=== PATIENT | female | born 1990 | race Caucasian/White ===

== ENCOUNTER → 2018-01-06 | Outpatient (CLI) | payer MEDICAID ==
[~2018-01-06] MED LIST: AMOX500T10 PO; ASCO-182 PO; ASCO500C9 PO; CEF300 PO; CEPH500T7 PO; CHOL100052 PO; CHOL100059 PO; CIPDEXPT LEFT EAR; FLU150 PO; GARL500T PO; IBUP600T22 PO; IBUP800T37 PO; LACT1CAP9 PO; LEVO750T44 PO; LOR5/325 PO; MAGN250T34 PO; METR-119 PO; NAPR220C12 PO; OFLO5DRO45 OT; OXYC5TAB38 PO; SULF-198 PO; Work Note
--- NOTE | 2018-01-06 16:09 | RADIOLOGY IMAGING REPORT ---
FACILITY: PATIENT NAME: Sonja Gann : 1990 MR: [id number] V: [id number] EXAM DATE: ORDERING PHYSICIAN: MALISSA BHANDARI TECHNOLOGIST: Location: [facility] Patient: Sonja Gann : 1990 Visit/Account:[id number] Date of Sevice: 01/06/2018 Pelvic ultrasound Comparison: 02/13/2017. History: Pelvic pain. Findings: Standard transabdominal and transvaginal pelvic ultrasound with color flow and spectral rj lysis. Uterus: Uterus measurement: 8.9 x 4.8 x 6.0 cm Endometrium measurement: 5 mm The endometrium and myometrium are homogeneous with no suspicious mass or vascular abnormality identi fied. Adnexa: Right ovary: 2.6 x 2.1 x 1.3 cm Left ovary: 2.2 x 1.6 x 1.4 cm No suspicious ovarian or adnexal mass. Normal arterial and venous flow is documented within each ova ry on Doppler evaluation. Free fluid: None Urinary bladder: Negative. IMPRESSION: Normal pelvic ultrasound. Report Dictated By: Carlos Plasencia MD at 01/06/2018 4:02 PM Report E-Signed By: Carlos Plasencia MD at 01/06/2018 4:04 PM WSN:[id number]
== END ==
LOC: US 14:28
PROVIDERS: ATTEND Nurse Practitioner
DX: R10.2 Pelvic and perineal pain (principal); R10.32 Left lower quadrant pain
CPT/HCPCS: 76856

== ENCOUNTER 2018-06-04 12:33 | Emergency (ER) | payer MEDICAID ==
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
[2018-06-04] MEDS ORDERED: IOPAMIDOL 76% 75 ML INFUS BTL 75 ML ONE (13:19)
[2018-06-04] MEDS ORDERED: NS(*) 0.9% 50 ML BAG 50 ML ONE (13:19)
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
[2018-06-04 15:03] VITALS: BP 113/67
== END 2018-06-04 15:11 | disposition home or self-care (01) ==
LOC: ER 12:36
DX: T71.9XXA Asphyxiation due to unspecified cause, initial encounter (principal); Y08.89XA Assault by other specified means, initial encounter
CPT/HCPCS: 70498; 81025; 99284; J7050; Q9967

== ENCOUNTER 2019-04-17 13:26 | Emergency (ER) | payer MEDICAID ==
[2019-04-17] MEDS ORDERED: LACT1CAP6 PO (13:31)
[2019-04-17] MEDS ORDERED: NORG1TAB74 PO (13:31)
--- NOTE | 2019-04-17 13:36 | ER Report ---
History and Physical Time Seen By MD: 13:32 Hx. of Stated Complaint: HEAVY VAGINAL BLEEDING. HPI/ROS CHIEF COMPLAINT: Vaginal bleeding HISTORY OF PRESENT ILLNESS: 28-year-old female patient persists to emergency room with complaint of vaginal bleeding. Patient states that she is not . She states that she is currently taking Sprintec for her control. She states that she states started bleeding this morning when she got up. She states that it has gotten significantly worse. She states this morning she was bleeding around a tampon while showering. Patient denies any fevers, chills, nausea, vomiting or diarrhea. Patient states she has some bloating, which is not abnormal for when she is having bleeding. Patient states she's already had her menses this month and that this bleeding is abnormal. Patient states she's feeling lightheaded and dizzy. She states she is not taking any medication for this. REVIEW OF SYSTEMS: Respiratory: No cough, no dyspnea. Cardiovascular: No chest pain, no palpitations. Gastrointestinal: No vomiting, no abdominal pain. Musculoskeletal: No back pain. Allergies: Coded Allergies: doxycycline (Verified Allergy, Unknown, 04/01/19) metronidazole (Verified Allergy, Unknown, 04/01/19) Uncoded Allergies: levoquin (Adverse Reaction, Unknown, 02/18/17) Home Meds Active Scripts Ketorolac Tromethamine (KETOROLAC TROMETHAMINE) 10 Mg Tab, 10 MG PO Q6H, #20 TAB Prov:MICHAELA RICHARDS TAYA 04/17/19 Reported Medications Lactobacillus Combination No.4 (PROBIOTIC) 1 Each Capsule, 1 EACH PO DAILY, CAPSULE 04/17/19 Norgestimate-Ethinyl Estradiol (SPRINTEC) 1 Each Tablet, 1 EACH PO DAILY 04/17/19 Past Medical/Surgical History Patient has a past medical history of syncope, migraines, angina, irregular heartbeat, hypothyroidism, alcohol use. Patient denies any surgical history. Reviewed Nurses Notes: Yes Hx Smoking: No Smoking Status: Never Smoker, Former Smoker Exposure to Second Hand Smoke?: No Hx Substance Use Disorder: No Hx Alcohol Use: Yes (occ) Constitutional Vital Sign - Last 24 Hours 04/17/19 04/17/19 04/17/19 04/17/19 13:30 13:31 14:30 15:00 Temp 97.7 Pulse 75 87 75 83 Resp 20 B/P (MAP) 120/75 (90) 125/77 104/63 (77) 107/66 (80) Pulse Ox 97 96 96 O2 Delivery Room Air Physical Exam General Appearance: The patient is alert, has no immediate need for airway protection and no current signs of toxicity. Respiratory: Chest is non tender, lungs are clear to auscultation. Cardiac: regular rate and rhythm Gastrointestinal: Abdomen is soft and non tender, no masses, bowel sounds normal. Musculoskeletal: Neck: Neck is supple and non tender. Extremities have full range of motion and are non tender. Skin: No rashes or lesions. DIFFERENTIAL DIAGNOSIS: After history and physical exam differential diagnosis was considered for vaginal bleeding including but not limited to ectopic , menses, miscarriage, and dysfunctional uterine bleeding. Medical Decision Making Data Points Result Diagram: 04/17/19 1340 04/17/19 1340 Laboratory Hematology Test 04/17/19 13:40 White Blood Count 7.3 k/uL (4.5-11.0) Red Blood Count 4.51 M/uL (4.17-5.56) Hemoglobin 14.0 g/dL (12.0-16.0) Hematocrit 41.4 % (34.0-47.0) Mean Corpuscular Volume 91.6 fL (80.0-96.0) Mean Corpuscular Hemoglobin 31.1 pg (26.0-33.0) Mean Corpuscular Hemoglobin Concent 33.9 g/dL (32.0-36.0) Red Cell Distribution Width 13.4 % (11.5-14.5) Platelet Count 305 K/uL (150-450) Mean Platelet Volume 7.0 fL (7.2-11.1) L Neutrophils (%) (Auto) 61.7 % (39.4-72.5) Lymphocytes (%) (Auto) 27.3 % (17.6-49.6) Monocytes (%) (Auto) 7.2 % (4.1-12.4) Eosinophils (%) (Auto) 3.3 % (0.4-6.7) Basophils (%) (Auto) 0.5 % (0.3-1.4) Nucleated RBC Relative Count (auto) 0.0 /100WBC Neutrophils # (Auto) 4.5 K/uL (2.0-7.4) Lymphocytes # (Auto) 2.0 K/uL (1.3-3.6) Monocytes # (Auto) 0.5 K/uL (0.3-1.0) Eosinophils # (Auto) 0.2 K/uL (0.0-0.5) Basophils # (Auto) 0.0 K/uL (0.0-0.1) Nucleated RBC Absolute Count (auto) 0.00 K/uL Chemistry Test 04/17/19 13:40 Sodium Level 137 mmol/L (137-145) Potassium Level 4.2 mmol/L (3.5-5.0) Chloride Level 103 mmol/L (98-107) Carbon Dioxide Level 26 mmol/L (22-31) Blood Urea Nitrogen 10 mg/dl (7-18) Creatinine 1.00 mg/dl (0.52-1.04) Glomerular Filtration Rate Calc > 60.0 Random Glucose 91 mg/dl (75-110) Calcium Level 9.3 mg/dl (8.4-10.2) Total Bilirubin 0.5 mg/dl (0.2-1.3) Aspartate Amino Transf (AST/SGOT) 28 U/L (0-35) Alanine Aminotransferase (ALT/SGPT) 29 U/L (0-56) Alkaline Phosphatase 47 U/L (0-126) Total Protein 7.2 g/dl (6.3-8.2) Albumin 4.0 g/dl (3.5-5.0) Human Chorionic Gonadotropin, Qual Negative (NEGATIVE) Coagulation Test 04/17/19 13:40 Prothrombin Time 13.8 seconds (12.0-14.4) Prothromb Time International Ratio 1.06 Activated Partial Thromboplast Time 34 seconds (23-35) EKG/Imaging Imaging TRANSVAGINAL NON-OB INDICATION: , VAGINAL BLEEDING COMPARISON: 01/06/2018 FINDINGS: Uterus measures 7.7 x 4.6 x 6.0 cm and is homogeneous in echotexture. No mass is identified. Double wall endometrial stripe measures 3 mm and is homogeneous There is no free fluid in the cul-de-sac. Urinary bladder is empty. Pelvic vessels appear unremarkable on this examination. Right ovary measures 1.3 x 1.3 x 0.8 cm and shows normal blood flow and contains several small follicles. Left ovary measures 1.7 x 1.4 x 1.0 cm and shows normal blood flow and contains several small follicles. IMPRESSION: 1. Pelvic ultrasound is within normal limits. Report Dictated By: Romero Kelly at 04/17/2019 3:13 PM Report E-Signed By: Romero Kelly at 04/17/2019 3:15 PM ED Course/Re-evaluation ED Course Patient was admitted to an exam room, history and physical were obtained. Diff erential diagnoses were considered. On examination lungs are clear, heart is regular, abdomen soft and nontender. He pelvic exam was done as described below. A CBC, CMP, hCG were done. Lab results were unremarkable. Patient was not anemic at this time. Patient received a liter normal saline. On evaluation doing pelvic exam there is not a significant amount of bleeding. A pelvic ultrasound was done which was negative. Patient did receive 30 mg of Toradol IV here in the emergency room. Patient states she does feel better. We will go ahead and discharge her home at this time. 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 She is to take the Toradol as needed to help with bleeding. Patient verbalized understanding and agreement with plan. Pelvic exam: The vulva was normal no lesions. The vagina did not have significant discharge. The cervix was closed slight bleeding and no purulent drainage. The uterus was normal size and non tender. The adnexa had no masses and no tenderness. The exam was performed with a plow mechanic. Decision to Disposition Date: Apr 17, 2019 Decision to Disposition Time: 15:25 Depart Departure Latest Vital Signs Vital Signs Date Time Temp Pulse Resp B/P (MAP) Pulse Ox O2 Delivery O2 Flow Rate FiO2 04/17/19 15:00 83 107/66 (80) 96 04/17/19 13:31 97.7 20 Room Air Impression: Primary Impression: Dysfunctional uterine bleeding Condition: Improved Disposition: HOME OR SELF-CARE Referrals: WANDA COVINGTON MD (PCP) New Scripts Ketorolac Tromethamine (KETOROLAC TROMETHAMINE) 10 Mg Tab 10 MG PO Q6H, #20 TAB Prov: MICHAELA RICHARDS 04/17/19 Patient Instructions: Dysfunctional Uterine Bleeding (ED) Additional Instructions: Increase fluid intake. Get plenty of rest. Follow up with your primary care provider in the next week. Return to the ER if condition worsen. Take the medication as prescribed. MICHAELA RICHARDS Apr 17, 2019 13:36
[2019-04-17] MEDS ORDERED: NS(*) 0.9% 1000 ML BAG 1,000 ML IV ONE (13:41)
[2019-04-17] MEDS ORDERED: KETOROLAC 30 MG/ML VIAL IVP ONE (13:45)
[2019-04-17 13:58] LABS: PLATELET COUNT, AUTOMATED 305 K/uL (150-450)
[2019-04-17 14:08] LABS: INR 1.06
[2019-04-17 15:00] VITALS: BP 107/66
--- NOTE | 2019-04-17 15:22 | RADIOLOGY IMAGING REPORT ---
FACILITY: [facility] PATIENT NAME: Sonja Gann : 1990 MR: [id number] V: [id number] EXAM DATE: ORDERING PHYSICIAN: MICHAELA RICHARDS TECHNOLOGIST: Location: [facility] Patient: Sonja Gann : 1990 Visit/Account:[id number] Date of Sevice: 04/17/2019 TRANSVAGINAL NON-OB INDICATION: , VAGINAL BLEEDING COMPARISON: 01/06/2018 FINDINGS: Uterus measures 7.7 x 4.6 x 6.0 cm and is homogeneous in echotexture. No mass is identified. Double wall endometrial stripe measures 3 mm and is homogeneous There is no free fluid in the cul-de-sac. Urinary bladder is empty. Pelvic vessels appear unremarkable on this examination. Right ovary measures 1.3 x 1.3 x 0.8 cm and shows normal blood flow and contains several small follic les. Left ovary measures 1.7 x 1.4 x 1.0 cm and shows normal blood flow and contains several small follicl es. IMPRESSION: 1. Pelvic ultrasound is within normal limits. Report Dictated By: Romero Kelly at 04/17/2019 3:13 PM Report E-Signed By: Romero Kelly at 04/17/2019 3:15 PM WSN:[id number]
[2019-04-17] MEDS ORDERED: KET10 PO (15:30)
[2019-04-20] MEDS ORDERED: MEDR10TA57 PO (11:17)
== END 2019-04-17 15:49 | disposition home or self-care (01) ==
LOC: ER 13:40
DX: N93.8 Other specified abnormal uterine and vaginal bleeding (principal)
CPT/HCPCS: 76830; 84703; 85025; 85610; 85730; 86850; 86900; 86901; 96361; 96374; 99284; J1885; J7030; 82040; 82247; 82310; 82374; 82435; 82565; 82947; 84075; 84132; 84155; 84295; 84450; 84460; 84520

== ENCOUNTER → 2019-04-20 | Outpatient (CLI) | payer MEDICAID ==
[~2019-04-20] MED LIST changes: +KET10 PO; +LACT1CAP6 PO; +MEDR10TA57 PO; +NORG1TAB74 PO
== END ==
LOC: LAB 11:22
PROVIDERS: ATTEND Obstetrics & Gynecology
DX: N93.8 Other specified abnormal uterine and vaginal bleeding (principal); Z72.51 High risk heterosexual behavior
CPT/HCPCS: 36415; 86592; 86703; 86803; 87340

== ENCOUNTER → 2019-05-01 | Outpatient (CLI) | payer MEDICAID ==
[~2019-05-01] MED LIST changes: +CHOL10005 PO; +ELDE1CAP PO; +GARL1TAB9 PO; +LACT1CAP23; +NITR-1 PO; +ZINC30TA5 PO; +[UNRECOGNIZED DRUG - CODE] PO
[2019-05-01 17:51] LABS: PLATELET COUNT, AUTOMATED 302 K/uL (150-450)
== END ==
PROVIDERS: ATTEND Nurse Practitioner Family
DX: R07.0 Pain in throat (principal); M54.5 Low back pain
CPT/HCPCS: 82040; 82247; 82310; 82374; 82435; 82565; 82947; 84075; 84132; 84155; 84295; 84450; 84460; 84520; 85025

== ENCOUNTER 2019-05-03 17:46 | Inpatient (IN) | payer MEDICAID ==
[~2019-05-03] VITALS: Ht 162.6 cm; Wt 62.6 kg
[~2019-05-03 17:46] MED LIST changes: -CHOL10005 PO; -ELDE1CAP PO; -GARL1TAB9 PO; -LACT1CAP23; -NITR-1 PO; -ZINC30TA5 PO; -[UNRECOGNIZED DRUG - CODE] PO
--- NOTE | 2019-05-03 18:06 | ER Report ---
History and Physical Time Seen By MD: 18:02 Hx. of Stated Complaint: DIAGNOSED WITH UTI AND TONSILITIS AND BEING TREATED WITH MACROBID. REPORTS FEVER FOR 1 WEEK. HPI/ROS CHIEF COMPLAINT: fever and tachycardia HISTORY OF PRESENT ILLNESS: This is a 28 year old female. She has been seen recently for urinary tract infection, currently on Macrobid. Also seen for sore throat, rapid strep at urgent care was negative, but they were considering treatment anyway, but decided to wait. She has history of frequent strep infecti ons every few months. She is being seen by Dr. Johnson, ENT in [place], and is scheduled to see them and they are considering taking out her tonsils. She is having worsening sore throat, pain with swallowing. No chest pain, but having some shortness of breath and heart racing today. Having fevers and chills as well. Having some nausea, no vomiting, no abdominal pain. Still with some urinary urgency and dysuria. Normal bowels. Not eating or drinking as well. Allergies: Coded Allergies: doxycycline (Verified Allergy, Mild, NAUSEA/VOMITING, 05/03/19) blisters to hands codeine (Verified Allergy, Unknown, 05/03/19) metronidazole (Verified Allergy, Unknown, 04/01/19) Uncoded Allergies: levoquin (Adverse Reaction, Unknown, 02/18/17) Home Meds Reported Medications Nitrofurantoin Macrocrystal (NITROFURANTOIN) 100 Mg Capsule, 100 MG PO BID for 5 Days, CAPSULE 05/03/19 Garlic (GARLIC) 1 Each Tablet, 1 EACH PO DAILY 05/03/19 Lactobac #2-S. Therm-Bifido #1 (Visbiome 112.5 Billion Capsule) 112.5 Billion Cell Capsule, DAILY 05/03/19 Elderberry Fruit and Flower (Black Elderberry 575 mg Cap) 460 Mg-115 Mg Capsule, PO DAILY 05/03/19 Zinc Gluconate (ZINC) 30 Mg Tablet, 20 MG PO DAILY 05/03/19 Cholecalciferol (Vitamin D3) (VITAMIN D3) 1,000 Unit Tablet, 5000 UNIT PO DAILY, TAB 05/03/19 Ascorbic Acid (VITAMIN C) 500 Mg Tablet, 1000 MG PO DAILY, TAB 05/03/19 Oregano Oil (OIL OF OREGANO) Unknown Strength Capsule, PO DAILY, CAPSULE 05/03/19 Lactobacillus Combination No.4 (PROBIOTIC) 1 Each Capsule, 1 EACH PO DAILY, CAPSULE 04/17/19 Discontinued Reported Medications Norgestimate-Ethinyl Estradiol (SPRINTEC) 1 Each Tablet, 1 EACH PO DAILY 04/17/19 Discontinued Scripts Medroxyprogesterone Acetate (PROVERA) 10 Mg Tablet, 10 MG PO DAILY, #10 TAB Prov:PAT SINGH Nya DO 04/20/19 Ketorolac Tromethamine (KETOROLAC TROMETHAMINE) 10 Mg Tab, 10 MG PO Q6H, #20 TAB Prov:MICHAELA RICHARDS POT FIRER 04/17/19 Past Medical/Surgical History History of mastoiditis, left ear surgery, question of hypothyroidism. History of syncope in the past. Frequent strep throat infections, seeing ENT. Reviewed Nurses Notes: Yes Hx Smoking: No Smoking Status: Never Smoker Exposure to Second Hand Smoke?: No Hx Substance Use Disorder: No Hx Alcohol Use: Yes (occ) Constitutional Vital Sign - Last 24 Hours 05/03/19 05/03/19 05/03/19 05/03/19 17:46 17:54 17:55 17:59 Temp 100.3 Pulse ??? 133 Resp 20 B/P (MAP) 144/118 (127) 131/62 (85) 131/62 Pulse Ox 95 O2 Delivery Room Air 05/03/19 05/03/19 05/03/19 05/03/19 18:00 18:16 18:30 18:46 Pulse 122 115 B/P (MAP) 130/85 (100) 124/84 (97) Pulse Ox 97 91 05/03/19 05/03/19 05/03/19 05/03/19 18:51 19:00 19:21 19:51 Pulse 112 ??? 114 B/P (MAP) 119/78 (92) Pulse Ox 91 94 05/03/19 05/03/19 05/03/19 05/03/19 20:00 20:21 20:30 20:35 Pulse 107 108 B/P (MAP) 115/70 (85) 121/73 (89) Pulse Ox 94 98 05/03/19 05/03/19 21:00 21:05 Pulse 104 B/P (MAP) 121/80 (94) Pulse Ox 94 Physical Exam General Appearance: The patient is alert. Having some distress due to pain. Non-toxic in appearance. Eyes: Pupils are equal, round. Reactive to light. No pallor, injection or icterus. Extraocular movements are intact. ENT: Mucous membranes are moist. Normal oral mucosa. Posterior oropharynx has tonsillar hypertrophy, exudates, and erythema, with some increased size on left compared to right, but good room in posterior oropharynx and no kissing tonsils. Void is not muffles or hoarse, and no stridor. Normal nasal mucosa. Normal tympanic membranes and canals. Neck: Supple and non tender. Has some submandibular lymphadenopathy. Respiratory: Lungs are clear to auscultation. Cardiovascular: Regular rate and rhythm. No murmurs, gallops or rubs. Normal capillary refill. Gastrointestinal: Abdomen is soft and non tender. Nondistended. Normal active bowel sounds. Has some bilateral CVA tenderness. Neurological: Alert and oriented x3. No focal neurologic deficits Skin: Warm and dry. No rashes. Musculoskeletal: Extremities are nontender. No tenderness in palpation of the cervical, thoracic and lumbar spine. DIFFERENTIAL DIAGNOSIS: After history and physical exam, differential diagnosis was considered for patient with fever and chills with worsening symptoms of sore throat and recent treatment for urinary tract infection with some bilateral flank pain. Would be concerned about worsening infection and sepsis due to either possible source of infection. With the asymmetry of the tonsils on the left side, would worry about an abscess we'll get a CT scan looking this. Also would worry about worsening urinary tract infection and pyelonephritis. Current antibiotic coverage would be insufficient to cover for an infection in the throat, and we may be dealing with a resistant bacteria in the urinary tract. Medical Decision Making Data Points Result Diagram: 05/03/19 1800 05/03/19 1800 Laboratory Hematology Test 05/03/19 18:00 White Blood Count 12.4 k/uL (4.5-11.0) H Red Blood Count 4.32 M/uL (4.17-5.56) Hemoglobin 13.3 g/dL (12.0-16.0) Hematocrit 39.0 % (34.0-47.0) Mean Corpuscular Volume 90.4 fL (80.0-96.0) Mean Corpuscular Hemoglobin 30.7 pg (26.0-33.0) Mean Corpuscular Hemoglobin Concent 34.0 g/dL (32.0-36.0) Red Cell Distribution Width 13.3 % (11.5-14.5) Platelet Count 284 K/uL (150-450) Mean Platelet Volume 7.0 fL (7.2-11.1) L Neutrophils (%) (Auto) 76.1 % (39.4-72.5) H Lymphocytes (%) (Auto) 11.8 % (17.6-49.6) L Monocytes (%) (Auto) 11.4 % (4.1-12.4) Eosinophils (%) (Auto) 0.5 % (0.4-6.7) Basophils (%) (Auto) 0.2 % (0.3-1.4) L Nucleated RBC Relative Count (auto) 0.1 /100WBC Neutrophils # (Auto) 9.4 K/uL (2.0-7.4) H Lymphocytes # (Auto) 1.5 K/uL (1.3-3.6) Monocytes # (Auto) 1.4 K/uL (0.3-1.0) H Eosinophils # (Auto) 0.1 K/uL (0.0-0.5) Basophils # (Auto) 0.0 K/uL (0.0-0.1) Nucleated RBC Absolute Count (auto) 0.01 K/uL Chemistry Test 05/03/19 18:00 Sodium Level 138 mmol/L (137-145) Potassium Level 3.7 mmol/L (3.5-5.0) Chloride Level 100 mmol/L (98-107) Carbon Dioxide Level 27 mmol/L (22-31) Blood Urea Nitrogen 5 mg/dl (7-18) Creatinine 0.80 mg/dl (0.52-1.04) Glomerular Filtration Rate Calc > 60.0 Random Glucose 114 mg/dl (75-110) Lactate 1.0 mmol/L (0.7-2.1) Calcium Level 9.4 mg/dl (8.4-10.2) Total Bilirubin 0.9 mg/dl (0.2-1.3) Aspartate Amino Transf (AST/SGOT) 27 U/L (0-35) Alanine Aminotransferase (ALT/SGPT) 30 U/L (0-56) Alkaline Phosphatase 74 U/L (0-126) Total Protein 8.0 g/dl (6.3-8.2) Albumin 4.1 g/dl (3.5-5.0) Human Chorionic Gonadotropin, Qual Negative (NEGATIVE) Urinalysis Test 05/03/19 18:07 Urine Color Yellow Urine Clarity Slightly-cloudy Urine pH 7.0 pH (4.8-9.5) Urine Specific [place] 1.014 Urine Protein Negative mg/dL (NEGATIVE) Urine Glucose (UA) Negative mg/dL (NEGATIVE) Urine Ketones Trace mg/dL (NEGATIVE) Urine Blood Negative (NEGATIVE) Urine Nitrite Negative (NEGATIVE) Urine Bilirubin Negative (NEGATIVE) Urine Urobilinogen 2.0 mg/dL (0.2-1.9) Urine Leukocyte Esterase Negative (NEGATIVE) Urine RBC 10 /HPF (0-2/HPF) Urine WBC 2 /HPF (0-5/HPF) Urine Squamous Epithelial Cells Many /LPF (</=FEW) Urine Bacteria Negative /HPF (NONE-FEW) Urine Mucus None /HPF (NONE-FEW) EKG/Imaging Imaging CHEST SINGLE AP Indication: Fever. Sore throat.. Comparison: 04/30/2017. Findings: Cardiomediastinal silhouette and pulmonary vessels within normal limits. There is no focal infiltrate or lobar consolidation. No pneumothorax or pleural effusion. No nodule. Upper abdomen is unremarkable. No acute bony abnormality. IMPRESSION: 1. No acute cardiopulmonary process. Report Dictated By: Giovany Burrows at 05/03/2019 7:[address] SOFT TISSUE NECK W/CONTRAST HISTORY: sore throat/swelling, fever COMPARISON STUDIES: None TECHNIQUE: Axial images were obtained from the skull base through the upper thoracic spine without IV contrast administration. Coronal and sagittal reformatted images were obtained from the axial source data. One of the following dose optimization techniques was utilized in the performance of this exam: Automated exposure control; adjustment of the mA and/or kV according to the patient's size; or use of an iterative reconstruction technique. Specific details can be referenced in the facility's radiology CT exam operational policy. EXAMINATION: CT neck with IV contrast Additional Pertinent history: none TECHNIQUE: Spiral scan was obtained from the hard palate through the upper chest during injection of nonionic iodinated intravenous contrast. Contrast: 75 cc of Isovue-370 COMPARISON STUDIES: none . FINDINGS: Suprahyoid neck: Bilateral palatine tonsillar enlargement with heterogenous striation compatible with uncomplicated bilateral tonsillitis. Parapharyngeal fat is well-maintained bilaterally. No abscess noted. Infrahyoid neck: negative Airway: negative Musculoskeletal / Body wall: negative Lymph node assessment: Symmetric bilateral level 2 lymph nodes noted. No suppurative nodes noted. No suppurative nodes noted. Visualized orbits / brain / paranasal sinuses: There is ethmoid, sphenoid and bilateral maxillary sinusitis. Upper chest: negative IMPRESSION: 1. Uncomplicated bilateral palatine tonsillitis with no evidence of abscess. Bilateral reactive level 2 lymph node seen with no evidence of suppurative nodes. 2. Sinusitis changes. Report Dictated By: Parker Stewart MD at 05/03/2019 7:53 PM ED Course/Re-evaluation Clinical Indication for ER IV: Hydration, IV Access ED Course Initial evaluation suggests sepsis likely due to pyelonephritis versus sore throat and possible abscess. Labs obtained including urine and blood cultures. Lactate also obtained. Patient started with fluids. Improvement in her tachycardia with the IV fluids. CT scan of the neck shows no sign of abscess. Labs do show mild elevated white count, urine test does show some white cells but is not severe in what it looks like for urinary infection. However based on bilateral flank pain, I suspect pyelonephritis. There was some question about allergies to antibiotics, however it sounds like a lot of her list of allergies or nausea or just of the antibiotics classes have not worked. Based on this, there is no adverse reaction to penicillin and we will go ahead and start Zosyn. I have talked to our hospitalist, Dr. Obrien, who accepted the patient for admission. Decision to Disposition Date: May 03, 2019 Decision to Disposition Time: 22:00 Depart Departure Latest Vital Signs Vital Signs Date Time Temp Pulse Resp B/P (MAP) Pulse Ox O2 Delivery O2 Flow Rate FiO2 05/03/19 21:05 104 94 05/03/19 21:00 121/80 (94) 05/03/19 17:59 100.3 20 Room Air Impression: Primary Impression: Sepsis Additional Impressions: Sore throat Pyelonephritis Condition: Improved Disposition: Admitted from ER Referrals: NICOLE FIELD DNP, POT FIRER-BC (PCP) Problem Qualifiers Primary Impression: Sepsis Sepsis type: sepsis due to unspecified organism Sepsis acute organ dysfunction status: without acute organ dysfunction Qualified Codes: A41.9 - Sepsis, unspecified organism RAMY BAHENA MD May 03, 2019 18:06
[2019-05-03] MEDS ORDERED: ACETAMINOPHEN 500 MG TAB PO ONE (18:25)
[2019-05-03] MEDS ORDERED: NS(*) 0.9% 1000 ML BAG 1,000 ML IV ONE (18:25)
[2019-05-03] MEDS ORDERED: ONDANSETRON 4 MG/2 ML VIAL IVP ONE (18:25)
[2019-05-03 18:32] LABS: PLATELET COUNT, AUTOMATED 284 K/uL (150-450)
[2019-05-03] MEDS ORDERED: IOPAMIDOL 76% 100 ML INFUS BTL 100 ML ONE (18:41)
--- NOTE | 2019-05-03 19:16 | RADIOLOGY IMAGING REPORT ---
FACILITY: [facility] PATIENT NAME: Sonja Gann : 1990 MR: [id number] V: [id number] EXAM DATE: ORDERING PHYSICIAN: RAMY BAHENA TECHNOLOGIST: [place] [facility] [place] G[place] : 1990 Visit/Account:[id number] Date of Sevice: 05/03/2019 CHEST SINGLE AP Indication: Fever. Sore throat.. Comparison: 04/30/2017. Findings: Cardiomediastinal silhouette and pulmonary vessels within normal limits. There is no focal infiltrate or lobar consolidation. No pneumothorax or pleural effusion. No nodule. Upper abdomen is unremarkable. No acute bony abnormality. IMPRESSION: 1. No acute cardiopulmonary process. Report Dictated By: Giovany Burrows at 05/03/2019 7:08 PM Report E-Signed By: Giovany Burrows at 05/03/2019 7:09 PM WSN:[id number]
--- NOTE | 2019-05-03 20:18 | RADIOLOGY IMAGING REPORT ---
[place] [facility] [place] NAME: Sonja Gann : 1990 MR: [id number] V: [id number] EXAM DATE: ORDERING PHYSICIAN: RAMY BAHENA TECHNOLOGIST: Location: [facility] Patient: Sonja Gann : 1990 Visit/Account:[id number] Date of Sevice: 05/03/2019 CT SOFT TISSUE NECK W/CONTRAST HISTORY: sore throat/swelling, fever COMPARISON STUDIES: None TECHNIQUE: Axial images were obtained from the skull base through the upper thoracic spine without IV contrast administration. Coronal and sagittal reformatted images were obtained from the axial source data. One of the following dose optimization techniques was utilized in the performance of this exam : Automated exposure control; adjustment of the mA and/or kV according to the patient's size; or use of an iterative reconstruction technique. Specific details can be referenced in the [facility] [place] exam operational policy. EXAMINATION: CT neck with IV contrast Additional Pertinent history: none TECHNIQUE: Spiral scan was obtained from the hard palate through the upper chest during injection o f nonionic iodinated intravenous contrast. Contrast: 75 cc of Isovue-370 COMPARISON STUDIES: none . FINDINGS: Suprahyoid neck: Bilateral palatine tonsillar enlargement with heterogenous striation compatible with uncomplicated bilateral tonsillitis. Parapharyngeal fat is well-maintained bilaterally. No abscess n oted. Infrahyoid neck: negative Airway: negative Musculoskeletal / Body wall: negative Lymph node assessment: Symmetric bilateral level 2 lymph nodes noted. No suppurative nodes noted. No suppurative nodes noted. Visualized orbits / brain / paranasal sinuses: There is ethmoid, sphenoid and bilateral maxillary sin usitis. Upper chest: negative IMPRESSION: 1. Uncomplicated bilateral palatine tonsillitis with no evidence of abscess. Bilateral reactive level 2 lymph node seen with no evidence of suppurative nodes. 2. Sinusitis changes. Report Dictated By: Parker Stewart MD at 05/03/2019 7:53 PM Report E-Signed By: Parker Stewart MD at 05/03/2019 8:10 PM WSN:[id number]
[2019-05-03] MEDS ORDERED: APAP/HYDROCODONE 325/5 TAB PO ONE (20:30)
[2019-05-03] MEDS ORDERED: PIPERACILLIN/TAZO*3.375GM VIAL 3.375 GM in NS(*) 0.9% 100 ML MINI-BAG 100 ML IVPB ONE (21:10)
[2019-05-03 22:08] VITALS: BP 114/66
[2019-05-03] MEDS ORDERED: ASCO-182 PO (22:18)
[2019-05-03] MEDS ORDERED: GARL1TAB9 PO (22:18)
[2019-05-03] MEDS ORDERED: [UNRECOGNIZED DRUG - CODE] PO (22:18)
[2019-05-03] MEDS ORDERED: ELDE1CAP PO (22:18)
[2019-05-03] MEDS ORDERED: LACT1CAP23 (22:18)
[2019-05-03] MEDS ORDERED: CHOL10005 PO (22:18)
[2019-05-03] MEDS ORDERED: ZINC30TA5 PO (22:18)
[2019-05-03] MEDS ORDERED: NITR-1 PO (22:20)
[2019-05-03] MEDS ORDERED: ACETAMINOPHEN 325 MG TAB PO PRN (22:20)
[2019-05-03] MEDS ORDERED: APAP/HYDROCODONE 325/5 TAB PO PRN (22:20)
[2019-05-03] MEDS: NS(*) 0.9% 1000 ML BAG 1,000 ML IV PRN (23:06)
--- NOTE | 2019-05-03 23:09 | History & Physical ---
History of Present Illness Chief Complaint Sore throat, fever, flank pain. History of Present Illness The patient is a 28 year old female who presents with sore throat and fever since Saturday. She was seen in Urgent Care and her strep test was negative but she was found to have a UTI per her report and started on Macrobid. The patient states she was not having any urinary symptoms on Saturday. The patient has a long history of recurrent pharyngitis and ear infections. She has had bilateral myringotomy tubes placed and a L mastoidectomy. Her ear infections have improved but she continues to have recurrent pharyngitis. She is planning to have a tonsillectomy in the near future. The patient has had headache, sore throat, runny nose, cough and fever at home. She has had fever to 103. She has not been around anyone else who has been sick. 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 She admits to drinking on the weekends. She has stopped this as she is being treated for a systemic yeast infection by an integrative physician in [place]. She has been instructed not to drink alcohol. She is also taking multiple vitamins for treatment. History Problems: (1) History of mastoidectomy Status: Resolved (2) History of recurrent ear infection Status: Chronic (3) Recurrent tonsillitis Status: Chronic (4) Hx of headache Status: Chronic (5) Hx of syncope Status: Chronic Home Meds Reported Medications Nitrofurantoin Macrocrystal (NITROFURANTOIN) 100 Mg Capsule, 100 MG PO BID for 5 Days, CAPSULE 05/03/19 Garlic (GARLIC) 1 Each Tablet, 1 EACH PO DAILY 05/03/19 Lactobac #2-S. Therm-Bifido #1 (Visbiome 112.5 Billion Capsule) 112.5 Billion Cell Capsule, DAILY 05/03/19 Elderberry Fruit and Flower (Black Elderberry 575 mg Cap) 460 Mg-115 Mg Capsule, PO DAILY 05/03/19 Zinc Gluconate (ZINC) 30 Mg Tablet, 20 MG PO DAILY 05/03/19 Cholecalciferol (Vitamin D3) (VITAMIN D3) 1,000 Unit Tablet, 5000 UNIT PO DAILY, TAB 05/03/19 Ascorbic Acid (VITAMIN C) 500 Mg Tablet, 1000 MG PO DAILY, TAB 05/03/19 Oregano Oil (OIL OF OREGANO) Unknown Strength Capsule, PO DAILY, CAPSULE 05/03/19 Lactobacillus Combination No.4 (PROBIOTIC) 1 Each Capsule, 1 EACH PO DAILY, CAPSULE 04/17/19 Discontinued Reported Medications Norgestimate-Ethinyl Estradiol (SPRINTEC) 1 Each Tablet, 1 EACH PO DAILY 04/17/19 Discontinued Scripts Medroxyprogesterone Acetate (PROVERA) 10 Mg Tablet, 10 MG PO DAILY, #10 TAB Prov:PAT SINGH DO 04/20/19 Ketorolac Tromethamine (KETOROLAC TROMETHAMINE) 10 Mg Tab, 10 MG PO Q6H, #20 TAB Prov:MICHAELA RICHARDS ORDER BUILDER LOADER 04/17/19 Allergies: Coded Allergies: doxycycline (Verified Allergy, Mild, NAUSEA/VOMITING, 05/03/19) blisters to hands codeine (Verified Allergy, Unknown, 05/03/19) metronidazole (Verified Allergy, Unknown, 04/01/19) Uncoded Allergies: levoquin (Adverse Reaction, Unknown, 02/18/17) Patient History: Diabetes mellitus (DM) GRANDFATHER FH: HTN (hypertension) GRANDFATHER FH: stroke GRANDFATHER FH: thyroid disease SISTER Other Social/Family Hx The patient is single and has a 5 year old daughter. 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 Hx Smoking: No Smoking Status: Never Smoker Exposure to Second Hand Smoke?: No Caffeine Intake: Coffee, Soda Caffeine/Cups Per Day: 1 soda or coffee every other day Hx Alcohol Use: Yes (occ) Social Drug Use: Never Review of Systems Constitutional: Fever, Chills Neurological: Syncope (Hx of syncope. Etiology unknown. Work up with neurology.) ENT: Sore Throat, Ear Ache Respiratory: Cough Gastrointestinal: No Nausea Genitourinary: No Dysuria Musculoskeletal: Pain (Flank.) Exam Vital Signs Vital Signs Date Time Temp Pulse Resp B/P (MAP) Pulse Ox O2 Delivery O2 Flow Rate FiO2 05/03/19 22:26 92 05/03/19 22:22 Room Air 05/03/19 22:08 99.3 103 114/66 (82) 05/03/19 17:59 20 General Appearance: Alert, Awake, No Acute Distress, Other (Feels warm to the touch.) Neuro: No Gross deficits Eyes: PERRLA ENT: Other (Tonsils enlarged, slightly injected, with small amounts of exudate bilaterally.) Neck: Other (Anterior cervical LN enlarged and tender bilaterally.) Cardiovascular: Other (Tachy, regular.) GI: Abd Soft and Non-Tender Extremities: Warm Integumentary: Other (R inner thigh with patch of depigmented skin noted.) Psych: Alert & Oriented X3, Appropriate Mood & Affect Medical Decision Making Data Points Result Diagram: 05/03/19 1800 05/03/19 1800 Pre-Admit Course Medical Record Review: Yes Assessment and Plan Problems: (1) Viral syndrome Status: Acute Assessment & Plan: Likely viral base on symptomatology. She is febrile and tachycardic. Will hydrate and treat her fever with antipyretics. CT neck showed no abscess. Strep test negative at Urgent Care on Saturday. Zosyn was started in ER. (2) Pyelonephritis Status: Acute Assessment & Plan: The patient reportedly had a positive UA on Saturday although states she was asymptomatic. She is not sure if a urine culture was performed. She was started on Macrodantin. Her UA today shows 2 WBCs per HPF but she now has flank pain. She has mild elevation of her white blood count. Will treat with Zosyn IV and recheck labs in am. Urine culture was ordered in ER. Hydrate with IV fluids. Time Spent on Plan of Care: < 30 min Venous Thromboembolism Antithrombotics Is Pt On Any Antithrombotics?: Yes Exam Sepsis Risk: Sepsis Risk MINOR GUILLAUME MD May 03, 2019 23:09
[2019-05-04 02:05] VITALS: BP 112/69
[2019-05-04] MEDS: PIPERACILLIN/TAZO*3.375GM VIAL 3.375 GM in NS(*) 0.9% 100 ML MINI-BAG 100 ML IVPB SCH ×4 (03:40→21:30)
[2019-05-04 05:37] LABS: PLATELET COUNT, AUTOMATED 202 K/uL (150-450)
[2019-05-04] MEDS: NS(*) 0.9% 1000 ML BAG 1,000 ML IV PRN ×3 (06:28→21:57)
[2019-05-04 07:18] VITALS: BP 112/67
--- NOTE | 2019-05-04 09:40 | Hospitalist Progress Note ---
Subjective Progress Notes Subjective No acute events overnight. She has had fevers up to 102.1 overnight. Patient Complains of: Neurological: No: Syncope, Confusion, Weakness Cardiovascular: No: Chest Pain, Palpitations Respiratory: No: Cough, Congestion, Shortness of Breath Gastrointestinal: No Nausea, No Vomiting Physical Exam Vital Signs Date Time Temp Pulse Resp B/P (MAP) Pulse Ox O2 Delivery O2 Flow Rate FiO2 05/04/19 07:42 91 Nasal Cannula 05/04/19 07:38 100.7 05/04/19 07:18 110 20 112/67 (82) Intake and Output 05/04/19 01:03 Intake Total 1300 ml Balance 1300 ml Intake Oral 200 ml IV Total 1100 ml # Voids 2 General Appearance: Alert, Awake, No Acute Distress, Other Cardiovascular: Regular Rate and Rhythm Respiratory: No Respiratory Distress Integumentary: Skin Intact without Lesion / Mass Psych: Alert & Oriented X3, Appropriate Mood & Affect Result Diagram: 05/04/1951905/04/19519 Assessment and Plan Problems: (1) Viral syndrome Status: Acute Assessment & Plan: Likely viral base on symptomatology. She is febrile and tachycardic. Fever got up to 102.1 last night. Will continue with hydration and antipyretics. CT neck showed no abscess. Strep test negative at Urgent Care on Saturday. Zosyn was started in ER. (2) Pyelonephritis Status: Acute Assessment & Plan: The patient reportedly had a positive UA on Saturday although states she was asymptomatic. She is not sure if a urine culture was performed. She was started on Macrodantin. Her UA today shows 2 WBCs per HPF but she now has flank pain. She has mild elevation of her white blood count, which has impro shahida on 05/04. Will treat with Zosyn IV and follow labs. Urine culture was ordered in ER. Hydrate with IV fluids. Exam Sepsis Risk: Sepsis Risk YOCASTA RUSS May 04, 2019 09:40
[2019-05-04] MEDS: ENOXAPARIN 40 MG/0.4ML SYR SC SCH (09:41)
[2019-05-04 10:09] VITALS: Ht 162.6 cm; Wt 62.6 kg
[2019-05-04 11:24] VITALS: BP 111/60
[2019-05-04] MEDS: ACETAMINOPHEN 500 MG TAB PO PRN ×2 (12:41→19:46)
[2019-05-04 14:41] VITALS: BP 121/74
[2019-05-04 19:44] VITALS: BP 116/69
--- NOTE | 2019-05-04 20:24 | Antimicrobial Stewardship ---
Antimicrobial Stewardship Empiricly appropriate: Yes Comment On Zosyn for pyelonephritis. Approriate Cultures done: Yes (NGTD) Renal/Hepatic dosing: Yes Reviewed for Drug Interaction: Yes Monitored for Toxicities: Yes Clinically stable/improving: Yes Determine cumulative duration: 10-14 days REYNA VALDES May 04, 2019 20:24
[2019-05-05 00:06] VITALS: BP 127/75
[2019-05-05] MEDS: ACETAMINOPHEN 500 MG TAB PO PRN ×2 (02:00→08:19)
[2019-05-05 03:17] VITALS: BP 115/74
[2019-05-05] MEDS: PIPERACILLIN/TAZO*3.375GM VIAL 3.375 GM in NS(*) 0.9% 100 ML MINI-BAG 100 ML IVPB SCH ×2 (03:21→09:37)
[2019-05-05] MEDS: NS(*) 0.9% 1000 ML BAG 1,000 ML IV PRN (05:06)
[2019-05-05 05:42] LABS: PLATELET COUNT, AUTOMATED 238 K/uL (150-450)
[2019-05-05 07:37] VITALS: BP 117/75
[2019-05-05] MEDS: ENOXAPARIN 40 MG/0.4ML SYR SC SCH (08:20)
[2019-05-05] MEDS ORDERED: AMOX-559 PO (11:45)
[2019-05-05] MEDS ORDERED: ACET-2146 PO (11:45)
--- NOTE | 2019-05-05 11:53 | Hospitalist Depart ---
Discharge Summary Reason for Hosp/Final Diag: (1) Viral syndrome Status: Acute Hospital Course & Plan: Likely viral base on symptomatology. She was febrile and tachycardic on admission. She has been afebrile for >24hrs at this point. Fevers managed with IV fluids and Tylenol. CT neck showed no abscess. Strep test negative at Urgent Care on Saturday. She has been on Zosyn during this admission and will be switched to Augmentin PO. (2) Pyelonephritis Status: Acute Hospital Course & Plan: The patient reportedly had a positive UA on Saturday although states she was asymptomatic. She is not sure if a urine culture was performed. She was started on Macrodantin. Her UA today shows 2 WBCs per HPF but she now has flank pain. She has mild elevation of her white blood count, which has improved on 05/04. Treated with Zosyn during admission, will switch to Au gmentin. Saline Locked now, but encouraged to push fluids. Departure Weight (Pounds): 138 Result Diagram: 05/05/19 0500 05/05/19 0500 Condition: Improved Discharge: Home, Self Care Discharge Instructions Home Meds Active Scripts Amoxicillin/Pot Clav 875-125 Mg Tab (AUGMENTIN 875-125 TABLET) 1 Each Tablet, 1 TAB PO Q12H, #25 TAB Prov:YOCASTA RUSS 05/05/19 Acetaminophen 500 Mg Tab (ACETAMINOPHEN EXTRA STRENGTH) 500 Mg Tablet, 1000 MG PO Q8H PRN for FEVER/PAIN, #30 TAB Prov:YOCASTA RUSS 05/05/19 Reported Medications Nitrofurantoin Macrocrystal (NITROFURANTOIN) 100 Mg Capsule, 100 MG PO BID for 5 Days, CAPSULE 05/03/19 Garlic (GARLIC) 1 Each Tablet, 1 EACH PO DAILY 05/03/19 Lactobac #2-S. Therm-Bifido #1 (Visbiome 112.5 Billion Capsule) 112.5 Billion Cell Capsule, DAILY 05/03/19 Elderberry Fruit and Flower (Black Elderberry 575 mg Cap) 460 Mg-115 Mg Capsule, PO DAILY 05/03/19 Zinc Gluconate (ZINC) 30 Mg Tablet, 20 MG PO DAILY 05/03/19 Cholecalciferol (Vitamin D3) (VITAMIN D3) 1,000 Unit Tablet, 5000 UNIT PO DAILY, TAB 05/03/19 Ascorbic Acid (VITAMIN C) 500 Mg Tablet, 1000 MG PO DAILY, TAB 05/03/19 Oregano Oil (OIL OF [place]) Unknown Strength Capsule, PO DAILY, CAPSULE 05/03/19 Discontinued Reported Medications Lactobacillus Combination No.4 (PROBIOTIC) 1 Each Capsule, 1 EACH PO DAILY, CAPSULE 04/17/19 Norgestimate-Ethinyl Estradiol (SPRINTEC) 1 Each Tablet, 1 EACH PO DAILY 04/17/19 Discontinued Scripts Medroxyprogesterone Acetate (PROVERA) 10 Mg Tablet, 10 MG PO DAILY, #10 TAB Prov:PAT SINGH DO 04/20/19 Ketorolac Tromethamine (KETOROLAC TROMETHAMINE) 10 Mg Tab, 10 MG PO Q6H, #20 TAB Prov:MICHAELA RICHARDS SENIOR PROGRAM ANALYST 04/17/19 Diet: Regular Activity: As Tolerated Special Instructions: Follow up with your PCP after you are finished with your antibiotics for a follow up urine culture. Do not take any additional Tylenol or medications containing Tylenol, other then what has been prescribed. Do not take any Motrin/Ibuprofen until symtpoms have resolved. Drink plenty of water. May return to work 05/10. Copies to: NICOLE FIELD DNP, SENIOR PROGRAM ANALYST-BC ; Venous Thromboembolism Antithrombotics Is Pt On Any Antithrombotics?: No YOCASTA RUSS May 05, 2019 11:53
[2019-05-05 12:08] VITALS: BP 117/80
== END 2019-05-05 13:10 | disposition home or self-care (01) | DRG 866 ==
LOC: ER 18:05 → MED 21:21
PROVIDERS: ADMIT Internal Medicine; ATTEND Internal Medicine
DX: B34.9 Viral infection, unspecified (principal); N12 Tubulo-interstitial nephritis, not specified as acute or chronic; J03.91 Acute recurrent tonsillitis, unspecified; Z88.1 Allergy status to other antibiotic agents; Z88.5 Allergy status to narcotic agent; Z88.8 Allergy status to other drugs, medicaments and biological substances
CPT/HCPCS: 36415; 70491; 71045; 81001; 82040; 82247; 82310; 82374; 82435; 82565; 82947; 83605; 84075; 84132; 84155; 84295; 84450; 84460; 84520; 84703; 85025; 87040; 87088; 96361; 96365; 99284; J1650; J2543; J7030; Q9967